=== PATIENT | female | born 1975 | race Caucasian/White ===

== ENCOUNTER 2018-04-05 19:08 | Emergency (ER) | payer OTHER ==
--- NOTE | 2018-04-05 20:39 | EDPHYS ---
Physician Documentation [facility] Name: Temitope Azul Age: 42 yrs Sex: Female : 1975 Arrival Date: 04/05/2018 Time: 19:11 Bed 18 Private MD: ED Physician Adam Medina HPI: 04/05 20:09 This 42 yrs old Female presents to ER via Ambulatory with complaints of rn Dizziness, ear pressure. 20:09 The patient presents with dizziness, lightheadedness. rn 20:10 Onset: The symptoms/episode began/occurred 1 week(s) ago. Modifying factors: The rn symptoms are alleviated by nothing, the symptoms are aggravated by changing position. Severity of symptoms: At their worst the symptoms were mild in the emergency department the symptoms are unchanged. The patient has not experienced similar symptoms in the past. REports has been getting over cold for 1 week, preceded by prolonged cold since thanksgiving, no head injury, reports 1 week of sinus congestion and pain, + left ear fullness, dizziness when standing up, does not feel off balance or vomiting. No fever. No chest pain/palpitations/sob. Symptoms resolved for 3 days when taking mireya D, but stopped and symptoms began. . 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 - Social history:: Smoking status: Patient/guardian denies using tobacco. - Ebola Screening: : No symptoms or risks identified at this time. - Family history:: not pertinent. - Hospitalizations: : No recent hospitalization is reported. ROS: 20:10 Constitutional: Negative for fever, chills, and weight loss, Eyes: Negative for injury, rn pain, redness, and discharge, ENT: + nasal congestion, ear pressure, and sinus drainage Neck: Negative for injury, pain, and swelling, Cardiovascular: Negative for chest pain, palpitations, and edema, Respiratory: Negative for shortness of breath, cough, wheezing, and pleuritic chest pain, Abdomen/GI: Negative for abdominal pain, nausea, vomiting, diarrhea, and constipation, MS/Extremity: Negative for injury and deformity, Skin: Negative for injury, rash, and discoloration, Neuro: Negative for headache, weakness, numbness, tingling, and seizure, + dizziness. Exam: 20:10 Constitutional: This is a well developed, well nourished patient who is awake, alert, rn and in no acute distress. Sitting upright with legs crossed and smiling. Head/Face: Normocephalic, atraumatic. Eyes: Pupils equal round and reactive to light, extra-ocular motions intact. Lids and lashes normal. Conjunctiva and sclera are non-icteric and not injected. Cornea within normal limits. Periorbital areas with no swelling, redness, or edema. ENT: Nares patent. No nasal discharge, no septal abnormalities noted. Tympanic membranes are normal and external auditory canals are clear. Oropharynx with no redness, swelling, or masses, exudates, or evidence of obstruction, uvula midline. Mucous membranes moist. Neck: Trachea midline, Supple, full range of motion without nuchal rigidity, No Meningismus. Skin: Warm, dry MS/ Extremity: Pulses equal, no cyanosis. Neuro: Awake and alert, GCS 15, oriented to person, place, time, and situation. Cranial nerves II-XII grossly intact. Motor strength 5/5 in all extremities. Sensory grossly intact. Cerebellar exam normal. 20:33 ECG was reviewed by the Attending Physician. rn Vital Signs: 19:30 BP 139 / 89; Pulse 99; Resp 18; Temp 98.6(O); Pulse Ox 99% on R/A; Weight 78.02 kg; lp1 Height 5 ft. 4 in. (162.56 cm); Pain 0/10; 19:30 Body Mass Index 29.52 (78.02 kg, 162.56 cm) lp1 MDM: 19:55 Patient medically screened. rn 20:36 Differential diagnosis: generalized weakness, hypovolemia, idiopathic dizziness, rn vertigo, sinusitis. Data reviewed: vital signs, nurses notes, EKG, and as a result, I will discharge patient. Counseling: I had a detailed discussion with the patient and/or guardian regarding: the historical points, exam findings, and any diagnostic results supporting the discharge/admit diagnosis, the need for outpatient follow up, to return to the emergency department if symptoms worsen or persist or if there are any questions or concerns that arise at home. Special discussion: I discussed with the patient/guardian in detail that at this point there is no indication for admission to the hospital. It is understood, however, that if the symptoms persist or worsen the patient needs to return immediately for re-evaluation. ED course: Normal ECG, normal neuro exam, symptoms most likely related to chronic allergies vs sinusitis, given length of symptoms and improvement of symptoms with mireya D, will dc home with abx fo sinusitis. . 04/05 20:09 Order name: EKG; Complete Time: 20:09 rn 04/05 20: Order name: EKG - Nurse/Tech; Complete Time: :33 rn EC:33 Rate is 98 beats/min. Rhythm is regular. QRS [place] is Normal. [place] interval is normal. QRS rn interval is normal. QT interval is normal. No Q waves. T waves are Normal. No ST changes noted. Clinical impression: Normal ECG. Interpreted by me. Administered Medications: No medications were administered Disposition: 04/05/18 20:38 Discharged to Home. Impression: Dizziness and giddiness, Acute sinusitis, unspecified. - Condition is Stable. - Discharge Instructions: Dizziness, Sinusitis, Adult, Dizziness, [id number]. - Prescriptions for Zithromax Z- Ted 250 mg Oral Tablet - take 1 tablet by ORAL route as directed for 5 days Day 1 - take two (2) tablets one time. Day 2, 3, 4 , 5 take one (1) tablet once daily.; 6 tablet. - Medication Reconciliation Form, Thank You Letter, Antibiotic Education, Prescription Opioid Use form. - Follow up: Private Physician; When: As needed; Reason: Recheck today's complaints, Re-evaluation by your physician. - Problem is new. - Symptoms have improved. Signatures: Adam Medina MD MD rn Pena, Laura RN RN lp1 Osiel Carmichael RN RN jd3 Corrections: (The following items were deleted from the chart) 20:46 20:38 04/05/2018 20:38 Discharged to Home. Impression: Dizziness and giddiness; Acute jd3 sinusitis, unspecified. Condition is Stable. Forms are Medication Reconciliation Form, Thank You Letter, Antibiotic Education, Prescription Opioid Use. Follow up: Private Physician; When: As needed; Reason: Recheck today's complaints, Re-evaluation by your physician. Problem is new. Symptoms have improved. rn
--- NOTE | 2018-04-05 20:39 | ER ---
Nurse's Notes [facility] Name: Temitope Azul Age: 42 yrs Sex: Female : 1975 Arrival Date: 04/05/2018 Time: 19:11 Bed 18 Private MD: Diagnosis: Dizziness and giddiness;Acute sinusitis, unspecified Presentation: 04/05 19:27 Presenting complaint: Patient states: Has been taking Kimi D for about 1 week, lp1 "getting over cold"; States "my left ear feels funny today and I've been getting very dizzy when moving around"; States some pain to left shoulder, no other discomfort. Transition of care: patient was not received from another setting of care. Onset of symptoms was April 05, 2018. Risk Assessment: Do you want to hurt yourself or someone else? Patient reports no desire to harm self or others. Initial Sepsis Screen: Does the patient meet any 2 criteria? No. Patient's initial sepsis screen is negative. Does the patient have a suspected source of infection? No. Patient's initial sepsis screen is negative. Care prior to arrival: None. 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 - Social history:: Smoking status: Patient/guardian denies using tobacco. - Ebola Screening: : No symptoms or risks identified at this time. - Family history:: not pertinent. - Hospitalizations: : No recent hospitalization is reported. Screenin:30 Abuse screen: Denies threats or abuse. Nutritional screening: No deficits noted. jd3 Tuberculosis screening: No symptoms or risk factors identified. Fall Risk Ambulatory Aid- None/Bed Rest/Nurse Assist (0 pts). Gait- Normal/Bed Rest/Wheelchair (0 pts) Mental Status- Oriented to own ability (0 pts). Total Harding Fall Scale indicates No Risk (0-24 pts). Assessment: 20:27 General: Appears in no apparent distress. uncomfortable, Behavior is calm, cooperative, jd3 appropriate for age, Reports switched blood pressure medication recently. Pain: Denies pain. Neuro: Level of Consciousness is awake, alert, obeys commands, Oriented to person, place, time, situation, Reports dizziness, Denies weakness blurred vision difficulty swallowing, numbness. Cardiovascular: Heart tones S1 S2 present Capillary refill < 3 seconds Patient's skin is warm and dry. Respiratory: Airway is patent Respiratory effort is even, unlabored, Respiratory pattern is regular, symmetrical, Breath sounds are clear bilaterally. GI: No signs and/or symptoms were reported involving the gastrointestinal system. : No signs and/or symptoms were reported regarding the genitourinary system. EENT: No signs and/or symptoms were reported regarding the EENT system. Derm: Skin is intact, Skin is dry, Skin is normal, Skin temperature is warm. Musculoskeletal: Circulation, motion, and sensation intact. Range of motion: intact in all extremities. Vital Signs: 19:30 BP 139 / 89; Pulse 99; Resp 18; Temp 98.6(O); Pulse Ox 99% on R/A; Weight 78.02 kg; lp1 Height 5 ft. 4 in. (162.56 cm); Pain 0/10; 19:30 Body Mass Index 29.52 (78.02 kg, 162.56 cm) lp1 ED Course: 19:11 Patient arrived in ED. am2 19:29 Triage completed. lp1 19:32 Arm band placed on left wrist. lp1 19:55 Adam Medina MD is Attending Physician. rn 20:20 Osiel Carmichael RN is Primary Nurse. jd3 20:30 Patient has correct armband on for positive identification. Bed in low position. Call jd3 light in reach. Side rails up X 1. 20:45 No provider procedures requiring assistance completed. Patient did not have IV access jd3 during this emergency room visit. Administered Medications: No medications were administered Outcome: 20:38 Discharge ordered by . rn 20:45 Discharged to home ambulatory, with family. jd3 20:45 Condition: stable 20:45 Discharge instructions given to patient, family, Instructed on discharge instructions, follow up and referral plans. medication usage, Demonstrated understanding of instructions, follow-up care, medications, Prescriptions given X 1. 20:46 Patient left the ED. jd3 Signatures: Adam Medina MD MD rn Pena, Laura, RN RN [email or web address] Antonette Hopkins Jonathon, RN RN jd3
--- NOTE | 2018-04-06 06:00 | EKG ---
Test Date: 2018-04-05 Test Time: 20:27:19 Tomographic Tech: STONE MEASUREMENT RESULTS: Intervals: Rate: 98 MT: 158 QRSD: 92 QT: 354 QTc: 451 [place]: P: 51 MT: 158 QRS: 79 T: 36 INTERPRETIVE STATEMENTS: Normal sinus rhythm Normal ECG No previous ECG available for comparison Electronically Signed On 04-06-18 05:59:52 CREW CLERK by Dominic Leiva
== END 2018-04-05 20:46 | disposition home or self-care (01) ==
LOC: ER 19:08
DX: J01.90 Acute sinusitis, unspecified (principal); I10 Essential (primary) hypertension; E78.5 Hyperlipidemia, unspecified
CPT/HCPCS: 93005; 99282